=== PATIENT | male | born 1940 | race Hispanic/Latino ===

== ENCOUNTER 2021-08-01 14:32 | Emergency (ER) | payer MEDICARE ==
[~2021-08-01] VITALS: Ht 182.9 cm; Wt 71.7 kg
== END 2021-08-01 18:17 | disposition home or self-care (01) ==
LOC: ER 14:38
DX: F03.90 Unspecified dementia, unspecified severity, without behavioral disturbance, psychotic disturbance, mood disturbance, and anxiety (principal); F20.9 Schizophrenia, unspecified; I10 Essential (primary) hypertension
CPT/HCPCS: 99283